=== PATIENT | female | born 1940 | race Caucasian/White ===

== ENCOUNTER 2017-04-04 11:29 | Emergency (ER) | payer OTHER ==
[~2017-04-04] VITALS: Ht 162.6 cm; Wt 77.9 kg
[~2017-04-04 11:29] MED LIST changes: -FLUC200T PO; -HYDR-5688 PO
[2017-04-04 11:31] VITALS: TEMP 36.7; Ht 162.6 cm; Wt 77.9 kg
--- NOTE | 2017-04-04 12:12 | DIAGNOSTIC IMAGING REPORT ---
CHEST ONE VIEW PORTABLE CLINICAL HISTORY: New onset atrial fibrillation COMPARISON STUDY: None FINDINGS: The heart is the upper limits of normal in size. There is mild prominence the right mid to upper mediastinum, likely secondary to prominent great vessels. There is no failure. There is no focal pulmonary consolidation. There are old right-sided rib fractures.[ IMPRESSION: 1. Mild right-sided mediastinal fullness, likely secondary to prominent great vessels 2. No evidence of failure. No evidence of focal pulmonary consolidation Electronically signed by: Armando Brothers M.D. 04/04/2017 12:10 PM Dictated Date/Time: 04/04/2017 12:09 PM
[2017-04-04 12:17] LABS: HEMATOCRIT 40.1 % (37-47); MEAN CELL VOLUME 88.3 fL (80-100); MEAN CORPUSCULAR HEMOGLOBIN 29.3 pg (25-34); MEAN CORPUSCULAR HGB CONC 33.2 g/dl (32-36); MEAN PLATELET VOLUME 10.2 fL (7.4-10.4); PLATELET COUNT 232 K/uL (130-400); RED BLOOD COUNT 4.54 M/uL (4.2-5.4); WHITE BLOOD COUNT 6.36 K/uL (4.8-10.8)
[2017-04-04 12:21] VITALS: O2SAT 95
[2017-04-04 12:36] LABS: PROTHROMBIN TIME (PATIENT) 10.6 SECONDS (9.0-12.0)
[2017-04-04 12:38] LABS: BUN/CREATININE RATIO 25.5 (10-20); CALCIUM 9.3 mg/dl (8.5-10.1); CREATININE 0.84 mg/dl (0.60-1.20)
[2017-04-04 12:43] LABS: ALB/GLOB RATIO 1.1 (0.9-2); CKMB/CK RATIO 0.9 (0-3.0)
[2017-04-04 13:11] LABS: MAGNESIUM 2.5 mg/dl (1.8-2.4)
[2017-04-04 13:30] LABS: THYROID STIMULATING HORMONE 1.1 uIu/ml (0.300-4.500)
[2017-04-04 13:59] VITALS: BP 162/83; PULSE 77; O2SAT 95
--- NOTE | 2017-04-04 15:10 | EMERGENCY ROOM VISIT NOTE ---
History Report prepared by Donato: Theron Shah Under the Supervision of: Dr. Tobias Thomas M.D. First contact with patient: 12:55 Chief Complaint: IRREGULAR HEARTBEAT Stated Complaint: A-FIB SENT FROM PRE-ADMISSION TESTING Nursing Triage Summary: Patient sent over from preadmission testing. Patient scheduled for hernia repair next week. On EKG in preadmission testing EKG showed Afib. Patient states she has no hx of Afib. History of Present Illness The patient is a 76 year old female who presents to the Emergency Room with constant new onset Atrial Fibrillation found on PAT. She is scheduled for hernia surgery next week and went for testing today. No prior history and she is asymptomatic. Her mother had an irregular heartbeat. Pt denies LOC, headache, fevers, chills, diaphoresis, visual changes, neck pain, chest pain, breathing difficulties, nausea, vomiting, abdominal pain, back pain, melena, hematochezia, urinary symptoms, numbness, weakness, lymphadenopathy, rash, or other complaints. Nothing has improved her symptoms. Source of History: patient Onset: shortly prior to arrival Quality: other (Atrial Fibrillation) Timing: constant Modifying Factors (Relieving): other (none) Review of Systems See HPI for pertinent positives and negatives. A total of ten systems were reviewed and were otherwise negative. Past Medical & Surgical Medical Problems: (1) No Known Active Medical Problems Surgical Problems: (1) History of cholecystectomy (2) S/P hysterectomy Family History No pertinent family history stated. Social History Smoking Status: Never Smoker Marital Status: Housing Status: lives with significant other Current/Historical Medications Scheduled Aspirin (Aspirin Ec), 81 MG PO QAM Atenolol (Tenormin), 50 MG PO QAM Calcium/Vitamin D (Os-Kam 500 Plus D), 1 TAB PO QAM Coenzyme Q10 (Ubidecarenone) (Coq10), 100 MG PO QAM Hydrochlorothiazide (Hydrochlorothiazide), 1 TAB PO QAM Ibuprofen Tab (Advil), 200 MG PO PRN Multivitamin (Multivitamin), 1 TAB PO QAM Omeprazole-Sodium Bicarbonate (Zegerid Otc), 1 TAB PO QAM Allergies Coded Allergies: Banana (Unverified Allergy, Unknown, NAUSEA AND VOMITING, 04/04/17) Simvastatin (Unverified Allergy, Unknown, MUSCLE ACHES, 04/04/17) Physical Exam Vital Signs Date Time Temp Pulse Resp B/P (MAP) Pulse Ox O2 Delivery O2 Flow Rate FiO2 04/04/17 13:59 77 16 162/83 95 04/04/17 13:15 74 22 158/85 92 Room Air 04/04/17 12:21 95 Room Air 04/04/17 12:21 95 Room Air 04/04/17 12:14 70 17 156/94 95 Room Air 04/04/17 12:10 95 Room Air 04/04/17 12:08 73 04/04/17 11:59 84 04/04/17 11:31 36.7 70 16 148/97 99 Room Air Physical Exam GENERAL: Awake, alert, well-appearing, in no distress HENT: Normocephalic, atraumatic. Oropharynx unremarkable. EYES: Normal conjunctiva. Sclera non-icteric. NECK: Supple. No nuchal rigidity. FROM. No JVD. RESPIRATORY: Clear to auscultation. CARDIAC: Regular rate, Irregular rhythm. Extremities warm and well perfused. Pulses equal. ABDOMEN: Soft, non-distended. No tenderness to palpation. No rebound or guarding. No masses. RECTAL: Deferred. MUSCULOSKELETAL: Chest examination reveals no tenderness. The back is symmetrical on inspection without obvious abnormality. There is no CVA tenderness to palpation. No joint edema. LOWER EXTREMITIES: Calves are equal size bilaterally and non-tender. No edema. No discoloration. NEURO: Normal sensorium. No sensory or motor deficits noted. SKIN: No rash or jaundice noted. Medical Decision & Procedures ER Provider Diagnostic Interpretation: X-ray: Per my interpretation, radiologist review. CHEST ONE VIEW PORTABLE FINDINGS: The heart is the upper limits of normal in size. There is mild prominence the right mid to upper mediastinum, likely secondary to prominent great vessels. There is no failure. There is no focal pulmonary consolidation. There are old right-sided rib fractures.[ IMPRESSION: 1. Mild right-sided mediastinal fullness, likely secondary to prominent great vessels 2. No evidence of failure. No evidence of focal pulmonary consolidation Electronically signed by: Armando Brothers M.D. Laboratory Results 04/04/17 11:45 04/04/17 11:45 Test 04/04/17 11:45 04/04/17 12:03 Red Blood Count 4.54 M/uL (4.2-5.4) Mean Corpuscular Volume 88.3 fL (80-100) Mean Corpuscular Hemoglobin 29.3 pg (25-34) Mean Corpuscular Hemoglobin Concent 33.2 g/dl (32-36) RDW Standard Deviation 45.9 fL (36.4-46.3) RDW Coefficient of Variation 14.1 % (11.5-14.5) Mean Platelet Volume 10.2 fL (7.4-10.4) Prothrombin Time 10.6 SECONDS (9.0-12.0) Prothromb Time International Ratio 1.0 (0.9-1.1) Activated Partial Thromboplast Time 25.7 SECONDS (21.0-31.0) Partial Thromboplastin Ratio 1.0 Anion Gap 6.0 mmol/L (3-11) Est Creatinine Clear Calc Drug Dose 55.8 ml/min Estimated GFR () 77.2 Estimated GFR (Non- 66.6 BUN/Creatinine Ratio 25.5 (10-20) Calcium Level 9.3 mg/dl (8.5-10.1) Magnesium Level 2.5 mg/dl (1.8-2.4) Total Bilirubin 0.8 mg/dl (0.2-1) Aspartate Amino Transf (AST/SGOT) 18 U/L (15-37) Alanine Aminotransferase (ALT/SGPT) 31 U/L (12-78) Alkaline Phosphatase 56 U/L (45-117) Total Creatine Kinase 82 U/L (26-192) Creatine Kinase MB 0.7 ng/ml (0.5-3.6) Creatine Kinase MB Ratio 0.9 (0-3.0) Total Protein 7.8 gm/dl (6.4-8.2) Albumin 4.1 gm/dl (3.4-5.0) Globulin 3.7 gm/dl (2.5-4.0) Albumin/Globulin Ratio 1.1 (0.9-2) Thyroid Stimulating Hormone (TSH) 1.100 uIu/ml (0.300-4.500) Bedside Troponin I < 0.030 ng/ml (0-0.045) Laboratory results reviewed by me ECG Indication: other (a-fib ) Rate (beats per minute): 77 Rhythm: atrial fibrillation Findings: no acute ischemic change, other (No PVCs.) ED Course 1250: The patient was evaluated in room A11B. A complete history and physical exam was performed. 1415: I reevaluated the patient. Discussed results and discharge instructions: she verbalized understanding and agreement. The patient is ready for discharge. Medical Decision Triage Nursing notes reviewed. The patient's presentation and history were concerning for new onset afib. Etiologies such as ectopy, cardiac dysrhythmia, electrolyte abnormality, thyroid dysfunction, pulmonary embolism, infection, gastrointestinal, as well as others were entertained. The patient appears to have new onset atrial fibrillation. Her blood work was done and was unremarkable. Chest x-ray did not reveal any acute findings. The patient is asymptomatic. I did consult with Dr. Jose Plummer of cardiology. Given the fact the patient has no symptoms and is pending surgery he felt initiation of anticoagulation today would be inappropriate. There is no indication for admission. He will see the patient in his office Friday morning for a cardiology consultation and echocardiography. They will discuss additional treatment. The patient will continue her beta jatinder. If she worsens in anyway she agrees to come back to the emergency department. I did discuss warning signs and symptoms. The patient and her feel comfortable with this. By the evaluation outlined above other emergent etiologies such as those listed in the differential, as well as others, were deemed relatively unlikely. The patient was educated about the findings as listed above. All questions were answered and the patient was pleased with the treatment. Return instructions were outlined and the patient was discharged in stable condition. The patient was referred to cardiology for follow-up for a recheck of the current condition. Blood pressure screening: Patient was found to have an elevated blood pressure and was referred to their primary doctor for recheck and further treatment. Medication Reconciliation: I attest that I have personally reviewed the patient' s current medication list Consults Time Called: 1315 Consulting Physician: Dr. Plummer -Cardiology Returned Call: [phone] Discussed the patient's case. Dr. Plummer recommends that the patient follow- up in the office on Friday. He recommends that the patient not be anticoagulated. Impression Primary Impression: New onset a-fib Scribe Attestation The scribe's documentation has been prepared under my direction and personally reviewed by me in its entirety. I confirm that the note above accurately reflects all work, treatment, procedures, and medical decision making performed by me. Departure Information Dispostion Home / Self-Care Referrals Dipti Gibbs D.O. (PCP) Forms HOME CARE DOCUMENTATION FORM, IMPORTANT VISIT INFORMATION Patient Instructions My [facility] Additional Instructions Rest and drink plenty of fluids as tolerated. Continue current medications. Eat a heart healthy, low fat, low cholesterol diet. Return to the ER immediately for passing out, chest pain, abdominal pain, vomiting, fevers, difficulty breathing, worsening of your condition, or as needed. Follow up with Dr. Plummer on Friday for a recheck of your current condition. You should hear from the office later today. If you do not hear from them call about 4:45 PM to verify the appointment time. If you do not hear from them this afternoon or cannot get in touch with them call Friday between 7:30 and 8 AM. Tell the area secretary that he is making time for you Friday to see you so that your checkup can be performed prior to surgery.
== END 2017-04-04 14:22 | disposition home or self-care (01) ==
LOC: C.EDB 11:31 → C.EDA 14:22
DX: I48.91 Unspecified atrial fibrillation (principal); Z90.49 Acquired absence of other specified parts of digestive tract; Z90.710 Acquired absence of both cervix and uterus; Z79.82 Long term (current) use of aspirin; Z79.899 Other long term (current) drug therapy

== ENCOUNTER → 2017-04-04 | Outpatient (CLI) | payer OTHER ==
[~2017-04-04] MED LIST: ASPI81TA28 PO; ATEN50TA8 PO; CALC500C70 PO; COEN100C7 PO; FLUC200T PO; HYDR-5688 PO; HYDR12.55 PO; IBUP-103 PO; MULT-506 PO; OMEP-105 PO
[2017-04-04 12:43] LABS: AST/SGOT 14 U/L (15-37); BLOOD UREA NITROGEN 23 mg/dl (7-18); BUN/CREATININE RATIO 33.7 (10-20); CALCIUM 9.2 mg/dl (8.5-10.1); CARBON DIOXIDE 28 mmol/L (21-32); CHLORIDE 105 mmol/L (98-107); CREATININE 0.67 mg/dl (0.60-1.20); GLUCOSE 84 mg/dl (70-99); POTASSIUM 4.6 mmol/L (3.5-5.1); SODIUM 141 mmol/L (136-145)
[2017-04-04 12:48] LABS: ALKALINE PHOSPHATASE 53 U/L (45-117); ALT/SGPT 29 U/L (12-78)
--- NOTE | 2017-04-09 10:42 | CODING QUERY NO DIAGNOSIS ---
TREATMENT RENDERED WITHOUT A DIAGNOSIS To promote full compliance with coding requirements relating to patient care, physician participation is requested in all cases of health information coder uncertainty. Please assist us with providing a diagnosis/symptom for the test(s) below: A diagnosis/symptom was not documented on your Order. A valid diagnosis/symptom is required to bill all insurances. Please remember that we are unable to code a diagnosis of rule out, probable, possible, questionable, or suspected. DATE OF SERVICE: 04/04/17 Tests that require a diagnosis: * COMPREHENSIVE METABOLIC PROFILE DIAGNOSIS: Provider Signature: Date: Thank you Gisele Mccarthy [facility] Information Management Once completed, please kindly fax back to [phone] For questions please call [phone]
== END | disposition home or self-care (01) ==
LOC: C.LAB 10:30
PROVIDERS: ATTEND Specialist
DX: I10 Essential (primary) hypertension (principal)

== ENCOUNTER 2017-04-16 08:01 | Day surgery (SDC) | payer OTHER ==
[2017-04-04 10:41] VITALS: BMI 29.0
--- NOTE | 2017-04-04 11:02 | PAT Medication Instructions ---
Service Date Apr 04, 2017. Current Home Medication List Aspirin (Aspirin Ec), 81 MG PO QAM Atenolol (Tenormin), 50 MG PO QAM Calcium/Vitamin D (Os-Kam 500 Plus D), 1 TAB PO QAM Coenzyme Q10 (Ubidecarenone) (Coq10), 100 MG PO QAM Hydrochlorothiazide (Hydrochlorothiazide), 1 TAB PO QAM Ibuprofen Tab (Advil), 200 MG PO PRN Multivitamin (Multivitamin), 1 TAB PO QAM Omeprazole-Sodium Bicarbonate (Zegerid Otc), 1 TAB PO QAM Medication Instructions For Your Scheduled Surgery - Hold the following medications as of 04/05/17: Coenzyme Q10 (Ubidecarenone) (Coq10), 100 MG PO QAM - Hold the following medications 5 days prior to surgery per surgeon's instructions: Aspirin (Aspirin Ec), 81 MG PO QAM Ibuprofen Tab (Advil), 200 MG PO PRN - Hold the following medications the morning of surgery: Calcium/Vitamin D (Os-Kam 500 Plus D), 1 TAB PO QAM Hydrochlorothiazide (Hydrochlorothiazide), 1 TAB PO QAM Multivitamin (Multivitamin), 1 TAB PO QAM - Take the following medications the morning of surgery with a sip of water OTHERWISE NOTHING TO EAT OR DRINK AFTER MIDNIGHT: Atenolol (Tenormin), 50 MG PO QAM Omeprazole-Sodium Bicarbonate (Zegerid Otc), 1 TAB PO QAM If you have any questions please call us at [phone] or [phone] or [phone]
[2017-04-04 11:40] LABS: BASO % 0.8 %; BASO ABS # 0.04 K/uL (0-0.2); COMPLETE YES; EOS % 1.9 %; HEMATOCRIT 39.1 % (37-47); LYMPH % 36.4 %; LYMPH ABS # 1.88 K/uL (1.2-3.4); MEAN CELL VOLUME 88.9 fL (80-100); MEAN CORPUSCULAR HEMOGLOBIN 29.1 pg (25-34); MEAN CORPUSCULAR HGB CONC 32.7 g/dl (32-36); MEAN PLATELET VOLUME 10.5 fL (7.4-10.4); MONO % 6.6 %; NEUT % 54.3 %; PLATELET COUNT 208 K/uL (130-400); WHITE BLOOD COUNT 5.17 K/uL (4.8-10.8)
[~2017-04-16] VITALS: Ht 158.8 cm; Wt 78.1 kg
[~2017-04-16 08:01] MED LIST changes: +CEFAZOLIN 2000 MG/60 ML D5W IV SCH; +DEXAMETHASONE SOD INJ 4 MG/ML VIAL ONE; +FENTANYL CITRATE INJ 50 MCG/1 ML 2 ML VIAL ONE; +GLYCOPYRROLATE INJ 0.2 MG/ML VIAL ONE; +LACTATED RINGER'S 1000ML 1,000 ML IV SCH; +LIDOCAINE HCL 2% 2 ML VIAL (20MG/ML) ONE; +MIDAZOLAM HCL 1 MG/ML 2ML VIAL ONE; +NEOSTIGMINE METHYLSULFATE 5 MG/5 ML SYR ONE; +ONDANSETRON INJ 2 MG/ML 2 ML VIAL ONE; +PROPOFOL IV EMULSION 10 MG/ML 20 ML VIAL IV ONE; +ROCURONIUM BROMIDE 10 MG/ML 5 ML VIAL ONE
[2017-04-16 08:26] VITALS: BP 170/82; PULSE 69; TEMP 36.5; O2SAT 96; Ht 158.8 cm; Wt 78.1 kg
--- NOTE | 2017-04-16 08:55 | History & Physical Bridge Note ---
H&P Re-Evaluation Bridge Note: I have examined the patient, reviewed the History & Physical and in the interval since the performance of the History & Physical I have noted the following changes of clinical significance: No changes noted
[2017-04-16] MEDS ORDERED: BUPIVACAINE/EPINEPHRINE 0.5% MPF 1:200,000 10 ML VIAL ONE (08:59)
[2017-04-16] MEDS ORDERED: ONDANSETRON INJ 2 MG/ML 2 ML VIAL IV PRN ×2 (10:00→10:30)
[2017-04-16] MEDS ORDERED: HYDROmorphone INJ 1 MG/ML SYR IV PRN (10:00)
[2017-04-16] MEDS ORDERED: EpHEDrine SULFATE INJ 50 MG/ML AMP IV PRN (10:00)
[2017-04-16] MEDS ORDERED: ATROPINE SULFATE 0.1 MG/ML 5ML SYR IV PRN (10:00)
[2017-04-16] MEDS ORDERED: LACTATED RINGER'S 1000ML 1,000 ML IV SCH (10:27)
--- NOTE | 2017-04-16 10:27 | [facility] Operative Report ---
Operative Report Operative Date Apr 16, 2017. Pre-Operative Diagnosis Incisional Hernia Post-Operative Diagnosis right direct inguinal hernia Procedure(s) Performed Open Inguinal hernia repair with mesh Surgeon Dr. Regino Bone Hardware Test Engineer Surgeon(s) Pillo Clements PA-C Estimated Blood Loss 5ml Findings direct right inguinal hernia with bowel incarceration Specimens none per surgeon Anesthesia get Disposition Recovery Room / PACU Description of Procedure After informed consent was obtained the patient was taken to the operating suite placed in supine position. The Entire lower abdomen area was sterilely prepped and draped in usual fashion. The hernia itself appeared somewhat different after the patient was supine than when she was standing. Originally I thought this was consistent with an incisional hernia from her prior hysterectomy however in the supine position appeared to be more in the inguinal region. I made a right inguinal incision with a 10 blade scalpel and carried down through the soft tissue using electrocautery. We skeletonize the external oblique aponeurosis and made incision with a fresh 15 blade scalpel. Metzenbaum scissor was used to extend this inferiorly as well as for several centimeters proximally. Once in the inguinal canal there was a large amount of bowel incarcerated. We were able to free this up using primarily blunt finger dissection. IT Was rather unique type of hernia. It was a very discrete probably 2-3 cm defect at what would typically be the very superior pole of the inguinal canal. We were able to free up everything that was coming through the defect and manually reduce it. Again this left a very discrete defect. I decided to primarily close this with #1 Ethibond using the shelving portion of Poupart's ligament and connecting this to the midline fascia in a technique similar to a Shouldice repair. After primarily closing this I did use a piece of polypropylene as an onlay using 0 Ethibond to secure the mesh distally to Hernán's ligament laterally along the shelving portion of Poupart's ligament and medially along the midline musculature. At the end of procedure was adequate hemostasis. We thoroughly irrigated the wound. I will note that prior to placing the mesh we did identify the ilioinguinal nerve and sharply lysed this to help prevent nerve entrapment syndrome. We then closed the defect by closing the external oblique aponeurosis with 2-0 Vicryl in running fashion soft tissue was closed using 3-0 Vicryl and skin was closed using 4-0 Monocryl. Marcaine was injected around the area for postoperative analgesia and skin glue used as a dressing I attest to the content of the Intraoperative Record and any orders documented therein. Any exceptions are noted below.
[2017-04-16] MEDS ORDERED: MoRPHine SULFATE 2 MG/ML CARP IV PRN (10:30)
[2017-04-16] MEDS ORDERED: HYDR-5688 PO (10:30)
[2017-04-16] MEDS ORDERED: FLUC200T PO (10:30)
[2017-04-16] MEDS ORDERED: HYDROCODONE/ACETAMOPHEN 5/325MG TAB PO PRN (10:30)
[2017-04-16] MEDS: FENTANYL CITRATE INJ 50 MCG/1 ML 2 ML VIAL IV PRN ×4 (10:30→10:45)
--- NOTE | 2017-04-16 10:32 | Discharge Instructions ---
Discharge Instructions Date of Service Apr 16, 2017. Visit Reason for Visit: Incisional Hernia Discharge Discharge Diagnosis / Problem: repair of hernia Discharge Goals Goal(s): Decrease discomfort Activity Recommendations Activity Limitations: as noted below Lifting Limitations: no more than 10 pounds Shower/Bathe: tomorrow Driving or Machine Use: 1 week Anesthesia . Post Anesthesia Instructions: If you have had General Anesthesia or IV Sedation: * Do not drive today. * Resume driving when surgeon permits. * Do not make important decisions or sign legal documents today. * Call surgeon for: 1. Temperature elevations greater than 101 degrees F. 2. Uncontrollable pain. 3. Excessive bleeding. 4. Persistent nausea and vomiting. 5. Medication intolerance (nausea, vomiting or rash). * For nausea and vomiting use only clear liquids such as: tea, soda, bouillon until nausea subsides, then gradually increase diet as tolerated. * If you have any concerns or questions, call your surgeon's office. If physician is unavailable and it is an emergency, call 911 or go to the nearest emergency room. . Instructions / Follow-Up Instructions / Follow-Up Dr. Bone in 2 weeks, call [phone] if you have any questions Diet Recommendations Recommended Home Diet: no limitations Procedures Procedures Performed: Open Inguinal hernia repair with mesh Pending Studies Studies pending at discharge: no Medical Emergencies . Who to Call and When: Medical Emergencies: If at any time you feel your situation is an emergency, please call 911 immediately. . Non-Emergent Contact Non-Emergency issues call your: Surgeon Call Non-Emergent contact if: you have a fever, temperature is above 101.5, your pain is not controlled, wound has increased redness, you have any medication questions . . "Provider Documentation" section prepared by Pillo Clements. .
--- NOTE | 2017-04-16 10:55 | Anesthesiology Progress Note ---
Anesthesia Post Op Note Date & Time Apr 16, 2017 at 10:55 Vital Signs Pain Intensity: 4 Vital Signs Past 12 Hours Date Time Temp Pulse Resp B/P (MAP) Pulse Ox O2 Delivery O2 Flow Rate FiO2 04/16/17 10:18 36.2 92 16 157/89 100 Oxymask 10 04/16/17 08:26 36.5 69 18 170/82 (111) 96 Room Air Notes Mental Status: alert / awake / arousable, participated in evaluation Pt Amnestic to Procedure: Yes Nausea / Vomiting: adequately controlled Pain: adequately controlled Airway Patency, RR, SpO2: stable & adequate BP & HR: stable & adequate Hydration State: stable & adequate Anesthetic Complications: no major complications apparent
[2017-04-16] MEDS ORDERED: MEPERIDINE HCL 25 MG/ML CARP IV PRN (11:15)
[2017-04-16] MEDS ORDERED: MEPERIDINE HCL 25 MG/ML CARP ONE (11:17)
[2017-04-16 12:15] VITALS: BP 151/85; PULSE 64; O2SAT 95
[2017-04-16 12:45] VITALS: BP 157/86; PULSE 70; TEMP 36.4; O2SAT 96
== END 2017-04-16 12:46 | disposition home or self-care (01) ==
LOC: C.ACU 08:01
PROVIDERS: ATTEND Surgery
DX: K40.90 Unilateral inguinal hernia, without obstruction or gangrene, not specified as recurrent (principal); M19.90 Unspecified osteoarthritis, unspecified site; E78.5 Hyperlipidemia, unspecified; Z90.49 Acquired absence of other specified parts of digestive tract; Z90.710 Acquired absence of both cervix and uterus; Z79.82 Long term (current) use of aspirin